=== PATIENT | female | born 1970 | race Caucasian/White ===

== ENCOUNTER → 2017-08-25 | Outpatient (CLI) | payer OTHER ==
[2017-08-26 08:55] LABS: Source CERVIX/ENDOCERV
== END ==
LOC: LAB 16:25 → LAB SHORT 16:25
PROVIDERS: Nurse Practitioner Family
DX: Z01.419 Encounter for gynecological examination (general) (routine) without abnormal findings (principal)
CPT/HCPCS: G0145

== ENCOUNTER → 2017-09-13 | Outpatient (CLI) | payer OTHER ==
[2017-09-13 10:39] LABS: BASOPHILS ABSOLUTE AUTO 0.07 K/mm3 (0.00-0.23); BASOPHILS PERCENT AUTO 1 % (0-2); EOSINOPHILS ABSOLUTE AUTO 0.12 K/mm3 (0.00-0.68); EOSINOPHILS PERCENT AUTO 1 % (0-6); Hemoglobin 13.8 g/dL (11.5-16.0); IMMATURE GRAN ABSOLUTE AUTO 0.03 K/mm3 (0.00-0.10); IMMATURE GRAN PERCENT AUTO 0 % (0-1); LYMPHOCYTES ABSOLUTE AUTO 1.83 K/mm3 (0.84-5.20); LYMPHOCYTES PERCENT AUTO 14 % (21-46); MONOCYTES ABSOLUTE AUTO 1.35 K/mm3 (0.16-1.47); MONOCYTES PERCENT AUTO 11 % (4-13); Mean Corpuscular HGB 29.5 pg (26.0-34.0); Mean Corpuscular HGB Conc 33.7 g/dL (31.5-36.5); Mean Corpuscular Volume 88 fL (80-100); Mean Platelet Volume 9.3 fL (9.1-12.4); NEUTROPHILS ABSOLUTE AUTO 9.34 K/mm3 (1.96-9.15); NEUTROPHILS PERCENT AUTO 73 % (41-73); Platelet Count 435 K/mm3 (150-400); RDW Coefficient Variation 14.4 % (11.7-14.2); RDW Standard Deviation 45.3 fL (35.1-46.3); Red Blood Cell Count 4.68 M/mm3 (3.80-5.20); White Blood Cell Count 12.74 K/mm3 (4.00-11.30)
[2017-09-13 10:44] LABS: Anion Gap 10 mmol/L (6-16); Blood Urea Nitrogen 12 mg/dL (8-24); Bun/Creatinine Ratio 16.4 (12.0-20.0); CO2, Blood 26 mmol/L (21-32); Calcium, Blood 9.1 mg/dL (8.5-10.1); Chloride, Blood 102 mmol/L (98-108); Creatinine, Blood 0.73 mg/dL (0.40-1.00); Glomerular Filtration Rate >60 (60-); Glucose, Blood 97 mg/dL (70-99); Potassium, Blood 3.9 mmol/L (3.5-5.5); Sodium, Blood 138 mmol/L (136-145)
== END ==
LOC: LAB EV 10:34 → LAB SHORT 10:34
PROVIDERS: Emergency Medicine
DX: R07.81 Pleurodynia (principal)
CPT/HCPCS: 80048; 85025; 85379

== ENCOUNTER → 2017-10-14 | Outpatient (CLI) | payer OTHER | LOC: LAB SHORT 08:24 → PLD 08:24 | DX: D36.7 Benign neoplasm of other specified sites (principal) | CPT/HCPCS: 88305 ==

== ENCOUNTER → 2018-09-17 | Outpatient (CLI) | payer OTHER | LOC: LAB SHORT 20:03 → LAB 20:03 | PROVIDERS: Nurse Practitioner Family | DX: Z01.419 Encounter for gynecological examination (general) (routine) without abnormal findings (principal) | CPT/HCPCS: G0145 ==

== ENCOUNTER → 2018-10-20 | Outpatient (CLI) | payer OTHER | END | disposition home or self-care (01) | LOC: LAB SHORT 13:41 → PLD 13:41 | DX: D22.72 Melanocytic nevi of left lower limb, including hip (principal); C44.41 Basal cell carcinoma of skin of scalp and neck; C44.519 Basal cell carcinoma of skin of other part of trunk | CPT/HCPCS: 88305 ==

== ENCOUNTER → 2020-01-20 | Outpatient (CLI) | payer OTHER | LOC: LAB SHORT 12:41 → LAB 12:41 | PROVIDERS: Nurse Practitioner Family | DX: Z01.419 Encounter for gynecological examination (general) (routine) without abnormal findings (principal) | CPT/HCPCS: G0145 ==

== ENCOUNTER 2020-10-26 07:45 | Day surgery (SDC) | payer OTHER ==
[~2020-10-26] VITALS: Ht 180.3 cm; Wt 97.4 kg
[~2020-10-26 07:45] MED LIST: ASCO500 PO; ESCI10 PO; IBUP200 PO; LORA10ER PO; VITAMIN D325 MC3 PO
[2020-10-26] MEDS ORDERED: GLUCHON PO (08:20)
== END 2020-10-26 10:45 | disposition home or self-care (01) ==
LOC: ORSCSDS 07:45
PROVIDERS: Surgery
PROC: 0DBN8ZX Excision of Sigmoid Colon, Via Natural or Artificial Opening Endoscopic, Diagnostic (ICD-10-PCS; principal; 2020-10-26 09:00)
PROC: 0DBP8ZX Excision of Rectum, Via Natural or Artificial Opening Endoscopic, Diagnostic (ICD-10-PCS; principal; 2020-10-26 09:00)
DX: Z12.11 Encounter for screening for malignant neoplasm of colon (principal); D12.5 Benign neoplasm of sigmoid colon; D12.8 Benign neoplasm of rectum
CPT/HCPCS: 88305; J2405; J2704; J7040; J7120

== ENCOUNTER → 2020-12-04 | Outpatient (CLI) | payer OTHER ==
[~2020-12-04] MED LIST changes: +GLUCHON PO
== END ==
LOC: LAB SHORT 10:48 → LAB 10:48
DX: D48.5 Neoplasm of uncertain behavior of skin (principal)
CPT/HCPCS: 88305

== ENCOUNTER → 2021-01-23 | Outpatient (CLI) | payer OTHER | END | disposition home or self-care (01) | LOC: LAB 09:40 → LAB SHORT 09:40 | PROVIDERS: Nurse Practitioner Family | DX: Z01.419 Encounter for gynecological examination (general) (routine) without abnormal findings (principal) | CPT/HCPCS: G0145 ==

== ENCOUNTER → 2021-12-10 | Outpatient (CLI) | payer OTHER | END | disposition home or self-care (01) | LOC: LAB SHORT 10:59 → PLD 10:59 | DX: D22.61 Melanocytic nevi of right upper limb, including shoulder (principal); L81.4 Other melanin hyperpigmentation | CPT/HCPCS: 88305 ==

== ENCOUNTER → 2024-04-05 | Outpatient (CLI) | payer OTHER ==
[~2024-04-05] MED LIST changes: +ACET500 PO; +Budeprion Xl300 MG PO; +MELO7.5 PO
[2024-04-14 06:29] LABS: HPV HIGH RISK BY TMA Not Detected; HPV SOURCE Cervical
== END ==
LOC: LAB SHORT 08:15 → LAB 08:15
PROVIDERS: Family Medicine
DX: Z01.419 Encounter for gynecological examination (general) (routine) without abnormal findings (principal)
CPT/HCPCS: 87624; G0123

== ENCOUNTER 2024-04-13 11:46 | Day surgery (SDC) | payer OTHER ==
[~2024-04-13] VITALS: Ht 180.3 cm; Wt 88.2 kg
[2024-04-13] MEDS ORDERED: Lactated Ringer's 1,000 ML IV ONE ×2 (12:55→13:00)
[2024-04-13] MEDS ORDERED: propofoL 50 ML IV ONE ×2 (13:00→13:44)
[2024-04-13 14:34] VITALS: BP 113/78
== END 2024-04-13 14:38 | disposition home or self-care (01) ==
LOC: ORSCSDS 11:46
PROVIDERS: Surgery
PROC: 0DBP8ZX Excision of Rectum, Via Natural or Artificial Opening Endoscopic, Diagnostic (ICD-10-PCS; principal; 2024-04-13 13:00)
DX: Z12.11 Encounter for screening for malignant neoplasm of colon (principal); Z86.0100 Personal history of colon polyps, unspecified; D12.8 Benign neoplasm of rectum; Z85.828 Personal history of other malignant neoplasm of skin
CPT/HCPCS: 88305; J2704; J7120

== ENCOUNTER 2024-09-01 08:29 | Day surgery (SDC) | payer OTHER ==
[~2024-09-01] VITALS: Ht 177.8 cm; Wt 96.0 kg
[2024-09-01] VITALS (14 sets, daily range): BP systolic 107–141; BP diastolic 56–81
[~2024-09-01 08:29] MED LIST changes: +BUPROPION XL150 M1 PO; -Budeprion Xl300 MG PO; +CeFAZolin Sodium 2,000 MG in NS 100 ML IV SCH; +Chlorhexidine Mouth Care 15 ML UDC MT SCH; +IBUP800 PO; +Lactated Ringer's 1,000 ML IV SCH; +OxyCODONE HCL 10 MG TABCR PO SCH; +Ropivacaine 0.5% HCl/Pf 123.125 MG,EPINEPHrine HCL 0.25 MG,Ketorolac Tromethamine 15 MG... INFIL SCH; +Tranexamic Acid 100 ML IV SCH; +Vancomycin HCL 1,000 MG in NS 250 ML IV SCH
[2024-09-01] MEDS ORDERED: CeFAZolin Sodium 2,000 MG VIAL ONE (08:31)
[2024-09-01] MEDS ORDERED: Acetaminophen 500 MG Tab PO SCH ×2 (08:45→16:00)
[2024-09-01] MEDS ORDERED: MELO7.5 PO (08:57)
[2024-09-01] MEDS ORDERED: ASCO500 PO (09:00)
[2024-09-01] MEDS ORDERED: MULVITA PO (09:00)
[2024-09-01] MEDS ORDERED: THERA-D2000 UNIT PO (09:01)
--- NOTE | 2024-09-01 09:17 | NUR ---
Ambulatory in Day Surgery History, Chart, Medications and Allergies reviewed before start of procedure. Pre-Op teaching done. Pt verbalizes understanding.
[2024-09-01] MEDS ORDERED: propofoL 20 ML IV ONE (09:27)
[2024-09-01] MEDS ORDERED: FentaNYL Citrate 50 MCG/ML 2 ML Injection ONE (09:28)
[2024-09-01] MEDS ORDERED: Midazolam HCl 1MG / ML 2ML Vial ONE (09:28)
[2024-09-01] MEDS ORDERED: Vancomycin HCl 1000 MG ADDvantage ONE (10:25)
[2024-09-01] MEDS ORDERED: Promethazine HCl 25 MG Tab PO PRN (10:35)
[2024-09-01] MEDS ORDERED: Metoclopramide HCl 5MG / ML 2ML Vial IV PRN (10:35)
[2024-09-01] MEDS ORDERED: HYDROmorphone HCl/Pf 1MG SYR IV PRN (10:40)
[2024-09-01] MEDS ORDERED: FLU VACC TS2024-25(6MOS UP)/PF 45 MCG/0.5 ML SYRINGE IM SCH (10:40)
[2024-09-01] MEDS ORDERED: DiphenhydrAMINE HCL 25 MG Cap PO PRN (10:40)
[2024-09-01] MEDS ORDERED: OxyCODONE HCL 5 MG TAB PO PRN ×2 (10:40)
[2024-09-01] MEDS ORDERED: Ondansetron HCl 2 MG / ML 2ML Vial IV PRN (10:40)
[2024-09-01] MEDS ORDERED: Bisacodyl 10 MG Supp PR PRN (10:45)
[2024-09-01] MEDS ORDERED: Lactated Ringer's 1,000 ML IV SCH (10:45)
[2024-09-01] MEDS ORDERED: Magnesium Hydroxide Conc 10 ML UDC PO PRN (10:45)
[2024-09-01] MEDS ORDERED: Ondansetron HCl 2 MG / ML 2ML Vial ONE (13:54)
--- NOTE | 2024-09-01 14:45 | NUR ---
POST-OP PATIENT ARRIVED TO ROOM AT 1430, VITALS STABLE. ICE MACHINE IN PLACE, SCDS, LANRE IN PLACE. AQUACEL AND SOREN WRAP IN PLACE. CALL LIGHT IN REACH.
--- NOTE | 2024-09-01 17:37 | NUR ---
PATIENT SUMMARY UP TO THE BATHROOM WITH 1-2 ASSIST FOR SAFETY, AWAITING FIRST POST OP VOID. DENIES N/V IV FLUIDS RUNNING. DENIES PAIN MEDICATED WITH SCHEDULED TYLENOL. ICE, SCD, AND LANRE HOSE ON. IN CHAIR FOR DINNER. DRESSING IS TELFA AND TEGEDERM WITH SOREN WRAP C/D/I. CALL LIGHT IN REACH VSS.
[2024-09-01] MEDS ORDERED: Ketorolac Tromethamine 15mg Vial IV SCH (18:00)
[2024-09-01] MEDS ORDERED: CeFAZolin Sodium 2,000 MG in NS 100 ML IV SCH (20:00)
[2024-09-01] MEDS ORDERED: NS 0 ML IV ONE (20:19)
[2024-09-01] MEDS ORDERED: Docusate Sodium 100 MG Cap PO SCH (21:00)
[2024-09-01] MEDS ORDERED: Vancomycin HCL 1,000 MG in NS 250 ML IV SCH (22:00)
[2024-09-02 01:31] VITALS: BP 107/63
[2024-09-02 03:30] VITALS: BP 113/67
[2024-09-02 05:14] LABS: BASOPHILS ABSOLUTE AUTO 0.05 K/mm3 (0.00-0.23); BASOPHILS PERCENT AUTO 0 % (0-2); EOSINOPHILS ABSOLUTE AUTO 0.03 K/mm3 (0.00-0.68); EOSINOPHILS PERCENT AUTO 0 % (0-6); Hematocrit 33.8 % (33.0-51.0); IMMATURE GRAN ABSOLUTE AUTO 0.08 K/mm3 (0.00-0.10); IMMATURE GRAN PERCENT AUTO 0 % (0-1); LYMPHOCYTES ABSOLUTE AUTO 3.31 K/mm3 (0.84-5.20); LYMPHOCYTES PERCENT AUTO 17 % (21-46); MONOCYTES ABSOLUTE AUTO 2.38 K/mm3 (0.16-1.47); MONOCYTES PERCENT AUTO 12 % (4-13); Mean Corpuscular HGB 29.7 pg (26.0-34.0); Mean Corpuscular HGB Conc 32.5 g/dL (31.5-36.5); Mean Corpuscular Volume 91 fL (80-100); Mean Platelet Volume 9.4 fL (9.1-12.4); NEUTROPHILS ABSOLUTE AUTO 14.16 K/mm3 (1.96-9.15); NEUTROPHILS PERCENT AUTO 71 % (41-73); Platelet Count 350 K/mm3 (150-400); RDW Coefficient Variation 13.5 % (11.7-14.2); White Blood Cell Count 20.01 K/mm3 (4.00-11.30)
[2024-09-02 05:52] LABS: Magnesium, Blood 2.2 mg/dL (1.6-2.4)
[2024-09-02 05:56] LABS: Calcium, Blood 8.8 mg/dL (8.5-10.1); Creatinine, Blood 0.74 mg/dL (0.40-1.00); Potassium, Blood 4.1 mmol/L (3.5-5.5)
--- NOTE | 2024-09-02 07:03 | NUR ---
PATIENT SITTING UP IN RECLINER, AT BEDSIDE. POST RIGHT TOTAL KNEE. POLAR PACK IN PLACE AND PAS. IV PATENT WITH FLUIDS INFUSING THAT CAME WITH PATIENT FROM PACU. ABOUT 800ML LTC. URINE CONCENTRATED THE FIRST VOID BUT CLEAR YELLOW THERE AFTER. VOIDING ADEQUATE AMOUNTS AND DRINKING LOTS OF FLUIDS. PAIN CONTROLLED WITH SCHEDULED TORADOL AND TYLENOL. NO PAIN AT REST AND A 2 WITH MOVEMENT. PATIENT UP WITH SB ASSIST, GAIT BELT AND WALKER. DOES VERY WELL, STEADY ON FEET. POLAR PACK ICE ADDED 3 TIMES T/O NOC. MEDS GIVEN SCHEDULED. SL THIS AM AFTER TORADOL IVP AT 0600. DR MCKOY HERE AT 0555. SOREN WRAP CUT OFF, DRESSING TELFA (SMALL STRIP COVERED BY TEGADERM. POST DISCHARGE IF DRESSING DOES NOT GET SOILED THEN DR WILL CHANGE AT 2 WEEK APPOINTMENT. UNDER TELFA IS MESH WITH GLUE, NO JAYLEN OR SUTURES. EMESIS X1 WHEN SHE GOT UP TO VOID THE FIRST TIME. THEN FELT BETTER IN THE HEAD. SHE FELT LIKE SHE WAS HAVING A LITTLE VERTIGO. NO ACUTE CHANGES T/O NOT. RESTED WHEN UNDISTURBED. HERE AT BEDSIDE THIS AM. PLAN IS PATIENT TO EAT BREAKFAST, HAVE PT THEN DISCHARGE TO HOME.
[2024-09-02 07:29] VITALS: BP 124/61
[2024-09-02] MEDS ORDERED: ASPI81CH PO (08:00)
[2024-09-02] MEDS ORDERED: ACET500 PO (08:00)
[2024-09-02] MEDS ORDERED: OXYC5 PO (08:00)
[2024-09-02] MEDS ORDERED: SULTRIDS PO (08:01)
--- NOTE | 2024-09-02 08:43 | NUR ---
DISCHARGE PT EDUCATED ON AND RECEIVED PRINTED DISCHARGE INSTRUCTIONS AND EXTRA DRESSING SUPPLIES. PT VERB AN UNDERSTANDING. IV DC'D. PT FILLED RX PRIOR TO ADMISSION. PT LEFT WITH ALL PERSONAL BELONGINGS AND ESCORTED OUT VIA W/C WITH AT SIDE.
[2024-09-02] MEDS ORDERED: buPROPion HCL 150 MG TAB.SR.12H PO SCH (09:00)
[2024-09-02] MEDS ORDERED: Ascorbic Acid 500 MG Tab PO SCH (09:00)
[2024-09-02] MEDS ORDERED: Aspirin 81 MG Chew PO SCH (09:00)
[2024-09-02] MEDS ORDERED: Multivitamins 1 Tab PO SCH (09:00)
[2024-09-02] MEDS ORDERED: Cholecalciferol 1000 Unit Tablet (=25MCG) PO SCH (09:00)
[2024-09-02] MEDS ORDERED: Trimethoprim/Sulfamethoxazole DS Tab PO SCH (09:00)
== END 2024-09-02 08:36 | disposition home or self-care (01) ==
LOC: ORSCMMR 08:29 → ORD 08:29 → ORSCMMR 08:30 → ORD 10:45 → SURS 14:18 → ORD 15:00
PROVIDERS: Orthopaedic Surgery
PROC: 0SRC0J9 Replacement of Right Knee Joint with Synthetic Substitute, Cemented, Open Approach (ICD-10-PCS; principal; 2024-09-01 10:45)
DX: M17.11 Unilateral primary osteoarthritis, right knee (principal)
CPT/HCPCS: 36415; 73560-RT; 80048; 83735; 85025; 97110; 97161; 97530; A9270; C1713; C1776; J0171; J0690; J0735; J1885; J2250; J2405; J2704; J2765; J2795; J3010; J3370; J7040; J7050; J7120

== ENCOUNTER 2025-01-11 09:06 | Day surgery (SDC) | payer OTHER ==
[~2025-01-11] VITALS: Ht 180.3 cm; Wt 90.9 kg
[~2025-01-11 09:06] MED LIST changes: +ASPI81CH PO; -CeFAZolin Sodium 2,000 MG in NS 100 ML IV SCH; -Chlorhexidine Mouth Care 15 ML UDC MT SCH; -Lactated Ringer's 1,000 ML IV SCH; +MULVITA PO; +OXYC5 PO; -OxyCODONE HCL 10 MG TABCR PO SCH; -Ropivacaine 0.5% HCl/Pf 123.125 MG,EPINEPHrine HCL 0.25 MG,Ketorolac Tromethamine 15 MG... INFIL SCH; +SULTRIDS PO; +THERA-D2000 UNIT PO; -Tranexamic Acid 100 ML IV SCH; -Vancomycin HCL 1,000 MG in NS 250 ML IV SCH
--- NOTE | 2025-01-11 12:41 | NUR ---
01/11/25 [address] SOTOMAYOR OFFICE TO VERIFY THAT PT MAY RESTART MELOXICAM. OFFICE CONFIRMED THAT IT WOULD BE FINE FOR PT TO TAKE MEDIATION TODAY.
[2025-01-11 12:53] VITALS: BP 137/84
== END 2025-01-11 12:30 | disposition home or self-care (01) ==
LOC: ORSCSDS 09:06
PROVIDERS: Surgery
PROC: 0DBN8ZX Excision of Sigmoid Colon, Via Natural or Artificial Opening Endoscopic, Diagnostic (ICD-10-PCS; principal; 2025-01-11 10:30)
PROC: 3E0H8GC Introduction of Other Therapeutic Substance into Lower GI, Via Natural or Artificial Opening Endoscopic (ICD-10-PCS; principal; 2025-01-11 10:30)
PROC: 0DBP8ZX Excision of Rectum, Via Natural or Artificial Opening Endoscopic, Diagnostic (ICD-10-PCS; principal; 2025-01-11 10:30)
DX: K62.1 Rectal polyp (principal); Z86.0101 Personal history of adenomatous and serrated colon polyps; D12.5 Benign neoplasm of sigmoid colon; Z85.828 Personal history of other malignant neoplasm of skin; Z79.899 Other long term (current) drug therapy
CPT/HCPCS: 88305; J2704; J7120